=== PATIENT | male | born 1935 | race Caucasian/White ===

== ENCOUNTER 2020-06-07 13:37 | Outpatient (CLI) | payer MEDICARE, OTHER ==
[~2020-06-07 13:37] MED LIST: LISI-170 PO
[2020-06-07] MEDS ORDERED: PANT40TA6 PO (14:50)
[2020-06-07 15:06] LABS: ALBUMIN 3.6 g/dL (3.4-5.0); CHLORIDE 113 mmol/L (98-107)
[2020-06-07 15:11] LABS: ALANINE AMINOTRANSFERASE 20 U/L (12-78); ALKALINE PHOSPHATASE 59 U/L (45-117); ANION GAP 7 mmol/L (5-15); BILIRUBIN,TOTAL 0.4 mg/dL (0.2-1.0); CALCIUM 8.7 mg/dL (8.5-10.1); CREATININE 0.93 mg/dL (0.7-1.3); TOTAL PROTEIN 6.8 g/dL (6.4-8.2)
== END 2020-06-07 23:59 | disposition home or self-care (01) ==
LOC: STAR 13:37
PROVIDERS: ATTEND Internal Medicine
DX: Z01.818 Encounter for other preprocedural examination (principal); Z20.828 Contact with and (suspected) exposure to other viral communicable diseases
CPT/HCPCS: 36415; 80053; 87635; 93005

== ENCOUNTER 2020-06-12 10:42 | Day surgery (SDC) | payer MEDICARE, OTHER ==
[~2020-06-12] VITALS: Ht 180.3 cm; Wt 94.0 kg
[~2020-06-12 10:42] MED LIST changes: +PANT40TA6 PO
[2020-06-12] MEDS ORDERED: LACTATED RINGERS 1,000 ML IV SCH (11:23)
[2020-06-12 11:25] VITALS: BP 153/77
[2020-06-12] MEDS ORDERED: CHLORHEXIDINE 15 ML UDC ONE (11:29)
[2020-06-12] MEDS ORDERED: CHLORHEXIDINE 15 ML UDC MM ONE (11:30)
[2020-06-12] MEDS ORDERED: PROPOFOL 10 MG/ML, 20ML ONE ×3 (11:59→12:38)
== END 2020-06-12 14:10 | disposition home or self-care (01) ==
LOC: OUT 10:42
PROVIDERS: ATTEND Internal Medicine
DX: C17.0 Malignant neoplasm of duodenum (principal); K44.9 Diaphragmatic hernia without obstruction or gangrene; K82.4 Cholesterolosis of gallbladder; K21.9 Gastro-esophageal reflux disease without esophagitis; I10 Essential (primary) hypertension; Z79.899 Other long term (current) drug therapy
CPT/HCPCS: 43259; J2704; J7120